=== PATIENT | male | born 1985 | race American Indian/Alaskan Native ===

== ENCOUNTER 2016-06-19 07:39 | Day surgery (SDC) | payer MEDICAID ==
--- NOTE | 2016-06-18 14:40 | Short Stay Summary ---
Short Stay Documentation Date of service: 06/19/16 Narrative H&P: 31-year-old male for repeat adenoidectomy and bilateral myringotomy and insertion of drain tubes. Long history of tonic otitis media. Previous T&A as a child. Chronic changes in both eardrums and De nasal speech. 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 The physician must have documented a localized or systemic infection, and the patient must have extensive clinical indicators of a generalized sepsis present prior to querying. By extensive clinical indicators, it is meant that the physician has documented two or more of the clinical indicators outlined below, therefore substantially describing the clinical condition about which the inpatient coder will inquire but not having made the specific or particular diagnosis Patient has been reassessed/reevaluated/re-examined. H&P has been reviewed. No interval changes.0811.06/19/16 - History Principal diagnosis: chronic otitis media. Adenoid hyperplasia with upper airway obstruction Past Medical History: other (smoker) Social history: lives with family, smoking - Allergies and Medications Current Medications: Allergies No Known Allergies Allergy (Unverified 06/11/16 10:05) Home Medications Medication Instructions Recorded Confirmed Last Taken Type No Known Home Medications [No 06/11/16 06/11/16 Unknown History Reported Home Medications] - Physical exam General appearance: no acute distress Integumentary: no rash HEENT: Other (both tympanic membranes severely retracted, atelectatic in the left ear.) Lungs: Clear to auscultation Breasts: deferred Heart: Regular rate, No murmurs Gastrointestinal: normoactive bowel sounds Male Genitourinary: deferred Rectal Exam: deferred Extremities: pulses intact, No edema Neurological: Normal gait, Normal speech, Normal tone - Brief post op/procedure progress note Date of procedure: 06/19/16 Pre-op diagnosis: chronic otitis media. Upper airway obstruction secondary to hyperplastic a Post-op diagnosis: same Procedure: Adenoidectomy, bilateral myringotomy insertion of drain tubes Under satisfactory general endotracheal anesthesia the ears were examined using the operating microscope. Inspection of the right ear demonstrated posterior retraction with a myringostapediopexy. In the anterior aspect of the drum tympanosclerosis was present. The ear canal was filled with Betadine solution. It was aspirated after 60 seconds. An anterior inferior myringotomy incision was performed. Suction was applied and slight mucoid fluid was aspirated. A double flange Batres grommet drain tube was inserted into the drum. The posterior retraction began to expand with this maneuver. Inspection of the left ear demonstrated severe atelectasis of the posterior half of the drum. Again a myringostapediopexy was present. The ear canal was filled with Betadine solution. It was aspirated after 60 seconds. An anterior myringotomy incision was performed. Suction was applied and copious viscid glue was aspirated from the middle ear space. The middle ear mucosa was thickened and hyperemic. A double flange Batres grommet drain tube was inserted into this drum is well. The nasopharynx was examined. The adenoids were massively enlarged and obstructed the choanae. They were removed using the [employer] microdebrider. Hemostasis was obtained with packing and electrocautery. After achieving complete hemostasis the procedure was terminated. The patient was taken to the recovery room having tolerated it well. Anesthesia: GETA Findings: Atelectatic drums, severe, worse on the left. Adenoid hyperplasia obstructed the choanae. Surgeon: JAKE NEVAREZ Estimated blood loss: minimal Pathology: list (adenoids) Specimen disposition: to lab Condition: stable - Hospital course Hospital course: Oropharynx clear. No bleeding. Vital signs stable and normal. 1119. 06/19/16 - Disposition Condition at discharge: Good Disposition: DISCHARGED TO HOME OR SELFCARE Short Stay Discharge Plan Follow up with: PRIMARY CARE, [Primary Care Provider] - 7 Days
[~2016-06-19 07:39] MED LIST: DILAUDID ONE; DIPRIVAN 10 MG/ML IV ONE; NEOSTIGMINE ONE; ROBINUL ONE; XYLOCAINE MPF 2% ONE; ZEMURON IV ONE
[2016-06-19] MEDS ORDERED: ANTIBIOTIC OINT TP ONE ×2 (07:41→12:08)
[2016-06-19] MEDS ORDERED: XYLOCAINE 2%/ EPI 1:200,000 INFILTRATI ONE (07:42)
[2016-06-19] MEDS ORDERED: NACL 0.9% 500 ML 500 ML ONE (07:42)
--- NOTE | 2016-06-19 08:10 | Anesthesia Day of Surgery ---
Anesthesia Day of Surgery - Day of Surgery Patient Examined: Yes Patient H&P Reviewed: Yes Patient is NPO: Yes
--- NOTE | 2016-06-19 08:14 | Anesthesia Consultation ---
Anesthesia Consult and Med Hx Date of service: 06/19/16 - Airway Anesthetic Teeth Evaluation: Poor ROM Head & Neck: Adequate Mental/Hyoid Distance: Adequate Mallampati Class: Class II Intubation Access Assessment: Probably Good - Pulmonary Exam CTA: Yes - Cardiac Exam Cardiac Exam: RRR - Pre-Operative Health Status ASA Pre-Surgery Classification: ASA2 Proposed Anesthetic Plan: General - Pulmonary Hx Smoking: Yes (20 years) Hx Asthma: Yes (as a child) - Central Nervous System Hx Psychiatric Problems: No - Other Systems Hx Cancer: No
[2016-06-19] MEDS ORDERED: AFRIN ONE (08:34)
[2016-06-19] MEDS ORDERED: NACL BACTERIOSTATIC INFILTRATI ONE (08:43)
[2016-06-19] MEDS ORDERED: NACL 0.9% 1000 ML 1,000 ML IV SCH (09:00)
[2016-06-19] MEDS ORDERED: VERSED IV NR (09:00)
[2016-06-19] MEDS ORDERED: PEPCID PO NR (09:00)
[2016-06-19] MEDS ORDERED: DECADRON ONE (10:19)
[2016-06-19] MEDS ORDERED: ZOFRAN ONE (10:19)
[2016-06-19] MEDS ORDERED: NACL 0.9% 500 ML IRRIGATION ONE (10:47)
[2016-06-19] MEDS ORDERED: AFRIN NS ONE (10:47)
[2016-06-19] MEDS ORDERED: NACL 0.9% IR ONE (10:48)
--- NOTE | 2016-06-19 11:29 | Post Anesthesia Evaluation ---
- Post Anesthesia Evaluation Patient Participated: Yes Airway Patent: Yes Stable Respiratory Function: Yes Nausea/Vomiting: No Temp > 96.8F: Yes Pain Manageable: Yes Adequeate Hydration: Yes Anesthesia Complications: No Block Receding Appropriately: Not Applicable Patient on Ventilator: No
[2016-06-19] MEDS ORDERED: DILAUDID IV PRN (12:00)
[2016-06-19] MEDS ORDERED: D5LR 1,000 ML IV SCH (13:00)
[2016-06-19] MEDS ORDERED: MORPHINE PO PRN (13:00)
[2016-06-19] MEDS ORDERED: TYLENOL PO PRN (13:00)
[2016-06-19 14:12] VITALS: BP 130/86
== END 2016-06-19 14:00 | disposition home or self-care (01) ==
LOC: OR 07:39
PROVIDERS: ATTEND Otolaryngology
DX: H66.90 Otitis media, unspecified, unspecified ear (principal); J35.2 Hypertrophy of adenoids; J98.11 Atelectasis; J45.909 Unspecified asthma, uncomplicated; F17.210 Nicotine dependence, cigarettes, uncomplicated
CPT/HCPCS: 42831; 69436; 88304; J1100; J1170; J2250; J2405; J2704; J2710; J7030; J7040